=== PATIENT | female | born 1990 | race Caucasian/White ===

== ENCOUNTER 2018-07-26 09:50 | Emergency (ER) | payer OTHER ==
[2018-07-26] MEDS ORDERED: Metoclopramide HCl 10 MG/2 ML VIAL ONE (10:47)
[2018-07-26] MEDS ORDERED: diphenhydrAMINE 50 MG/ML VIAL ONE ×2 (10:47→10:48)
[2018-07-26] MEDS ORDERED: methylPREDNISolone Sod Succ/PF 125 MG/2 ML VIAL ONE (10:47)
[2018-07-26] MEDS ORDERED: Ketorolac Tromethamine 30 MG/ML VIAL ONE ×2 (10:47→10:49)
== END 2018-07-26 12:34 | disposition admitted as inpatient to this hospital (09) ==
LOC: ERS 09:50
DX: T88.59XA Other complications of anesthesia, initial encounter (principal); G44.40 Drug-induced headache, not elsewhere classified, not intractable; F41.9 Anxiety disorder, unspecified; F32.9 Major depressive disorder, single episode, unspecified; F17.210 Nicotine dependence, cigarettes, uncomplicated; Z79.899 Other long term (current) drug therapy
CPT/HCPCS: 62272; 96365; 96375; J1200; J1885; J2765; J2930